=== PATIENT | female | born 1965 | race African-American/Black ===

== ENCOUNTER 2018-07-02 05:49 | Inpatient (IN) ==
[2018-06-28 15:36] LABS: Basophils # 0.1 10*3/uL (0.0-0.2); Basophils % 0.5 % (0.0-0.8); Eosinophils # 0.1 10*3/uL (0.0-0.87); Eosinophils % 0.6 % (0.00-10.9); Hematocrit 36.3 VOL% (35.7-47.0); Hemoglobin 11.5 GM/DL (12.0-16.0); Immature Granulocytes % 0.3 %; Immature Granulocytes Absolute 0.04 #; Lymphocytes # 2.7 10*3/uL (1.4-4.0); Lymphocytes % 19.7 % (21.3-54.2); Mean Corpuscular HGB Conc 31.7 GM/DL (32-36); Mean Corpuscular Hemoglobin 29 PG (27-34); Mean Corpuscular Volume 90.8 FL (87-102); Mean Platelet Volume 10.4 FL (9.6-12.0); Monocytes # 1.1 10*3/uL (0.11-0.8); Monocytes % 8.1 % (1.7-12.7); Neutrophils # 9.9 10*3/uL (1.4-7.4); Neutrophils % 70.8 % (38.7-73.9); Platelet Count 385 T/CUMM (130-400); Red Cell Distribution Width 17.3 % (9.3-17.3); White Blood Count 13.9 T/CUMM (4-12)
[2018-06-28 15:46] LABS: PT Patient Result 10.5 SECS; Partial Thromboplastin Time 25.9 SECS (0-40)
[2018-06-28 15:54] LABS: Calcium 8.8 MG/DL (8.5-10.1); Potassium 4.1 MMOL/L (3.5-5.1)
[2018-06-28 16:12] LABS: Apearance,Urine CLEAR (Clear); Bilirubin,Urine Negative (Negative); Blood, Urine Large mg/dL (Negative); Calcium Oxalate Crystals,Urine Occasional /HPF (Few); Glucose,Urine (UA) Negative (Negative); Ketones,Urine Negative (Negative); Mucus,Urine Occasional /LPF (Occasional); Nitrite,Urine Negative (Negative); Protein,Urine Negative; RBC,Urine 81 /HPF (0-4); Squamous Epithelial Cell,Urine Occasional /HPF (0-10); Urine Color Yellow (Yellow); Urine Specific Gravity 1.019 (1.001-1.035); Urine Urobilinogen < 2.0 EU/DL (0.2-1.0); WBC,Urine 4 /HPF (0-6)
[2018-07-02] MEDS ORDERED: ceFAZolin 1,000 MG in SYRINGE 1 EACH IV ONE (06:00)
[2018-07-02] MEDS ORDERED: ceFAZolin 1,000 MG VIAL ONE (06:04)
[2018-07-02] MEDS ORDERED: FAMOTIDINE 20 MG TABLET ONE (06:27)
[2018-07-02] MEDS ORDERED: DIAZEPAM 5 MG TABLET ONE (06:27)
[2018-07-02] MEDS ORDERED: DIAZEPAM 5 MG TABLET PO STA (06:28)
[2018-07-02] MEDS ORDERED: FAMOTIDINE 20 MG TABLET PO STA (06:29)
[2018-07-02] MEDS ORDERED: LACTATED RINGERS 1,000 ML IV SCH (06:30)
[2018-07-02] MEDS ORDERED: BENZOCAINE/MENTHOL LOZENGE 18/BOX PO PRN (09:42)
[2018-07-02] MEDS ORDERED: ACETAMINOPHEN 325 MG TABLET PO PRN (09:42)
[2018-07-02] MEDS ORDERED: BISACODYL 10 MG SUPP RECTAL PRN (09:42)
[2018-07-02] MEDS ORDERED: IBUPROFEN 800 MG TABLET PO PRN (09:42)
[2018-07-02 09:46] LABS: Apearance,Urine CLEAR (Clear); Bilirubin,Urine Negative (Negative); Blood, Urine Small mg/dL (Negative); Glucose,Urine (UA) Negative (Negative); Ketones,Urine 5 mg/dL (Negative); Mucus,Urine Moderate /LPF (Occasional); Nitrite,Urine Negative (Negative); Protein,Urine Negative; RBC,Urine 3 /HPF (0-4); Squamous Epithelial Cell,Urine Occasional /HPF (0-10); Urine Color Yellow (Yellow); Urine Specific Gravity 1.013 (1.001-1.035); Urine Urobilinogen < 2.0 EU/DL (0.2-1.0); WBC,Urine 1 /HPF (0-6)
[2018-07-02] MEDS ORDERED: PROMETHAZINE 25 MG/1 ML VIAL ONE (09:47)
[2018-07-02] MEDS ORDERED: MEPERIDINE 25 MG/1 ML VIAL ONE (09:47)
[2018-07-02] MEDS ORDERED: PROPOFOL 200 MG/20 ML VIAL IV ONE (09:48)
[2018-07-02] MEDS ORDERED: SEVOFLURANE 1 UNIT/15 MINUTE INH ONE (09:49)
[2018-07-02] MEDS ORDERED: MIDAZOLAM 2 MG/2 ML VIAL ONE (09:49)
[2018-07-02] MEDS ORDERED: fentaNYL 100 MCG/2 ML VIAL ONE (09:49)
[2018-07-02] MEDS ORDERED: KETOROLAC 30 MG/1 ML VIAL ONE (09:50)
[2018-07-02] MEDS ORDERED: GLYCOPYRROLATE 0.4 MG/2 ML VIAL ONE (09:50)
[2018-07-02] MEDS ORDERED: NEOSTIGMINE 10 MG/10 ML VIAL ONE (09:50)
[2018-07-02] MEDS ORDERED: ACETAMINOPHEN 1,000 MG/100 ML VIAL IV ONE (09:50)
[2018-07-02] MEDS ORDERED: ROCURONIUM 100 MG/10 ML VIAL IV ONE (09:51)
[2018-07-02] MEDS ORDERED: SODIUM CHLORIDE 0.9% 100 ML IV ONE (09:51)
[2018-07-02] MEDS ORDERED: MEPERIDINE 25 MG/1 ML VIAL IV PRN (09:58)
[2018-07-02] MEDS ORDERED: ONDANSETRON 4 MG/2 ML VIAL IV PRN (09:58)
[2018-07-02] MEDS ORDERED: PROMETHAZINE INJ 25 MG in SODIUM CHLORIDE 0.9% 50 ML IV PRN (09:58)
[2018-07-02] MEDS: HYDROmorphone 2 MG/1 ML VIAL IV PRN ×3 (11:57→20:29)
[2018-07-02] MEDS ORDERED: HYDROmorphone 2 MG/1 ML VIAL ONE (11:57)
[2018-07-02] MEDS: LACTATED RINGERS 1,000 ML IV SCH ×2 (14:33→23:28)
[2018-07-02] MEDS: ceFAZolin 1,000 MG in SYRINGE 1 EACH IV SCH ×2 (15:51→23:29)
[2018-07-03] MEDS: ONDANSETRON 4 MG/2 ML VIAL IV PRN ×2 (01:40→12:13)
[2018-07-03] MEDS: HYDROmorphone 2 MG/1 ML VIAL IV PRN ×2 (01:40→06:09)
[2018-07-03 05:54] LABS: Basophils % 0.2 % (0.0-0.8); Hematocrit 31.6 VOL% (35.7-47.0); Hemoglobin 10.2 GM/DL (12.0-16.0); Immature Granulocytes % 0.6 %; Immature Granulocytes Absolute 0.13 #; Lymphocytes # 1.4 10*3/uL (1.4-4.0); Lymphocytes % 6.8 % (21.3-54.2); Mean Corpuscular HGB Conc 32.3 GM/DL (32-36); Mean Corpuscular Hemoglobin 29 PG (27-34); Mean Corpuscular Volume 90.5 FL (87-102); Mean Platelet Volume 11.3 FL (9.6-12.0); Monocytes # 1.3 10*3/uL (0.11-0.8); Monocytes % 6.4 % (1.7-12.7); Neutrophils # 17.4 10*3/uL (1.4-7.4); Platelet Count 343 T/CUMM (130-400); Red Blood Count 3.49 MC/CUMM (3.8-5.5); Red Cell Distribution Width 16.4 % (9.3-17.3); White Blood Count 20.2 T/CUMM (4-12)
[2018-07-03] MEDS: SIMETHICONE CHEW 80 MG TABLET PO PRN ×2 (06:20→21:47)
[2018-07-03 06:26] LABS: Lymphocytes 4 % (20-55); Platelet Estimate Normal; Polychromasia Few; Segmented Neutrophils 91 % (50-85); Total Cells Counted 100
[2018-07-03] MEDS: DOCUSATE SODIUM 100 MG CAPSULE PO PRN (09:15)
[2018-07-03] MEDS: MAGNESIUM HYDROXIDE SUSP 30 ML UDCUP PO PRN ×2 (09:15→21:45)
[2018-07-03] MEDS: oxyCODONE/ACETAMINOPHEN 5-325 MG TABLET PO PRN ×2 (17:07→23:19)
[2018-07-04 07:18] VITALS: BP 110/71
[2018-07-04] MEDS: DOCUSATE SODIUM 100 MG CAPSULE PO PRN (08:48)
== END 2018-07-04 10:10 | disposition home or self-care (01) | DRG 743 ==
LOC: N.SDSINP 05:49 → N.OB 10:29
PROVIDERS: ADMIT Specialist; ATTEND Specialist